=== PATIENT | male | born 1960 | race Caucasian/White ===

== ENCOUNTER 2020-02-20 00:22 | Observation (INO) | payer SELFPAY ==
[2020-02-20] MEDS ORDERED: SODIUM CHLORIDE 0.9% (FLUSH) 10 ML SYG IV PRN ×2 (00:32→08:37)
[2020-02-20] MEDS ORDERED: ONDANSETRON INJ 4 MG/2 ML VIAL IV ONE (00:32)
[2020-02-20] MEDS ORDERED: SODIUM CHLORIDE 0.9% 1000ML 1,000 ML IVS ONE (00:33)
--- NOTE | 2020-02-20 00:33 | ED.PDOC ---
History of Present Illness - General Time Seen by Provider: 02/20/20 00:32 Source: patient - History of Present Illness Initial Comments: 59-year-old male with no reported medical issues who is brought in by from home for chief complaint of dizziness and vomiting. Patient reports dizziness symptoms began yesterday evening while riding in the car. It again recurred this morning so pt stayed home from work and sx's went away after a short while. Patient reports he went to sleep this evening and woke up about 2 hours ago again with symptoms but more severe in nature and constant for the past 2 hours. He reports sensation of dizziness like the room is spinning. It is associated with severe nausea and 5 episodes of nonbloody nonbilious emesis as well as development of skin pallor and diaphoresis. Reports the dizziness is worsened by position changes and turning his head, seems to be slightly better when lying flat and closing his eyes. He has not taken any medication for relief. Denies any history of similar symptoms in the past. Denies any chest pain, shortness of breath, fevers, chills, cough, abdominal pain, diarrhea, urinary symptoms, leg swelling, ear pain or fullness. Patient denies any history of high blood pressure, diabetes, cardiac history, stroke. Reports he is otherwise healthy and takes no daily medications. He drinks occasionally but has not had any alcohol this evening. PCP is Dr. Kiel Mullins. Allergies/Adverse Reactions: Allergies NO KNOWN ALLERGY Allergy (Verified 02/20/20 00:56) Review of Systems - Review of Systems Review of Systems: 02/20/20 00:52 as per HPI All other Systems: Reviewed and Negative Family Medical History - Family History Mother Family History: Unknown Physical Exam - Physical Exam General Appearance: Alert, Anxious, Restless Eye Exam: bilateral normal Ears, Nose, Throat: normal ENT inspection, normal pharynx Neck: non-tender, full range of motion, supple, normal inspection Respiratory: chest non-tender, lungs clear, normal breath sounds, no respiratory distress, no accessory muscle use Cardiovascular/Chest: normal peripheral pulses, regular rate, rhythm, no edema, no gallop, no JVD, no murmur Peripheral Pulses: radial,right: 2+, radial,left: 2+ Gastrointestinal/Abdominal: normal bowel sounds, non tender, soft, no organomegaly, no pulsatile mass Back Exam: normal inspection, no CVA tenderness, no vertebral tenderness Extremity: normal range of motion, non-tender, normal inspection, no pedal edema, no calf tenderness, normal capillary refill Neurologic: body artist II-XII nml as tested, no motor/sensory deficits, alert, normal mood/affect, oriented x 3, abnormal cerebellar tests - BL leftward beating horizontal nystagmus noted Skin Exam: diaphoresis, pallor Progress - Progress Progress: 02/20/20 00:54 Acute dizziness and nausea -Most consistent with peripheral etiology such as acute benign paroxysmal positional vertigo vs vestibular neuritis/labyrinthitis, etc... Consider also stroke, middle ear infection, acoustic neuroma, ACS, dehydration, metabolic derangement, gastroenteritis, flu, strep, COVID-19, other -Patient with slightly elevated blood pressure upon arrival but vitals otherwise stable -Obtain blood work, cardiac work-up, CT imaging of the head -Place peripheral IV, 1 L normal saline bolus, Zofran 4 mg IV, reassess 02/20/20 01:45 -Pt now able to tolerate HiNTS exam - reassuring as pt noted to have horizontal leftward-beating nystagmus. Does not change directions with horizontal gaze in both directions. There does seem to be abnormal horizontal head impulse test (saccade/correction present), which is a reassuring finding. And there is no skew deviation on alternate eye cover test - all suggestive of nerve/peripheral issue and not brainstem issue. Question vestibular neuritis. -Pt does report some improving dizziness and nausea. -Will obtain CT head w/o and CTA head & neck 02/20/20 05:00 -Patient remains stable. -CT imaging of the head and neck reviewed. There is no acute processes or lesions noted. -Labs reviewed. Pertinent for positive strep test, random glucose 163, serum potassium 3.1. BUN 23, creatinine 0.9 likely mild dehydration from vomiting. Otherwise labs largely unremarkable -Patient reports dizziness and nausea symptoms much improved but not fully resolved. He was able to ambulate independently to the restroom. Given his persistent dizziness and nausea, I advised that we admit him for further observation for PRN medications and monitoring. My impression is that he most likely has a peripheral cause of his acute persistent dizziness. I strongly suspect vestibular neuritis. CVA appears unlikely but still remains within the differential. I discussed the patient with Radha Rodrigues who accepts to her service. The plan will be for continued IV medications as needed for dizziness as well as IV fluids. Plan for possible MRI of the brain while in the hospital. Discussed possible trial of IV steroids, will leave at the discretion of admitting provider. With the streptococcal pharyngitis, will treat with Bicillin 1,200,000 units IM in the ED. Eric Mathis MD Billing #[id number] 02/20/20 00:32 IV Care:Saline Lock per Protoc QSHIFT Sodium Chloride 0.9% (Flush) [Saline Flush Syringe] 10 ml IV PRN PRN 02/20/20 00:45 EKG STAT Laboratory Results - last 24 hr 02/20/20 02/20/20 02/20/20 01:00 01:00 01:00 WBC 8.9 RBC 5.00 Hgb 14.3 Hct 42.0 MCV 84.0 MCH 28.7 MCHC 34.2 RDW 13.1 Plt Count 251 MPV 8.5 Absolute Neuts (auto) 6.60 Absolute Lymphs (auto) 1.60 Absolute Monos (auto) 0.50 Absolute Eos (auto) 0.10 Absolute Basos (auto) 0.10 Neutrophils % 74.4 Lymphocytes % 18.2 L Monocytes % 6.1 Eosinophils % 0.6 L Basophils % 0.7 Sodium 140 Potassium 3.1 L Chloride 105 Carbon Dioxide 22 Anion Gap 16.1 BUN 23 H Creatinine 0.94 BUN/Creatinine Ratio 24.5 H Random Glucose 163 H Serum Osmolality 286.7 Calcium 9.1 Total Bilirubin 0.7 Direct Bilirubin 0.1 Indirect Bilirubin 0.6 AST 22 ALT 15 Alkaline Phosphatase 32 L Troponin I < 0.02 Serum Total Protein 6.9 Albumin 4.2 Amylase 52 Lipase 32 Urine Color Urine Appearance Urine pH Ur Specific [place] Urine Protein Urine Glucose (UA) Urine Ketones Urine Blood Urine Nitrite Urine Bilirubin Urine Urobilinogen Ur Leukocyte Esterase Urine RBC Urine WBC Ur Epithelial Cells Urine Bacteria Group A Strep Rapid 02/20/20 02/20/20 01:24 01:30 WBC RBC Hgb Hct MCV MCH MCHC RDW Plt Count MPV Absolute Neuts (auto) Absolute Lymphs (auto) Absolute Monos (auto) Absolute Eos (auto) Absolute Basos (auto) Neutrophils % Lymphocytes % Monocytes % Eosinophils % Basophils % Sodium Potassium Chloride Carbon Dioxide Anion Gap BUN Creatinine BUN/Creatinine Ratio Random Glucose Serum Osmolality Calcium Total Bilirubin Direct Bilirubin Indirect Bilirubin AST ALT Alkaline Phosphatase Troponin I Serum Total Protein Albumin Amylase Lipase Urine Color Yellow Urine Appearance Clear Urine pH 8.5 H Ur Specific [place] 1.025 Urine Protein Negative Urine Glucose (UA) Negative Urine Ketones 40 H Urine Blood Negative Urine Nitrite Negative Urine Bilirubin Negative Urine Urobilinogen 0.2 Ur Leukocyte Esterase Negative Urine RBC 0 Urine WBC 0 Ur Epithelial Cells 0 Urine Bacteria 0 Group A Strep Rapid Positive H - EKG/XRAY/CT EKG: Sinus - Normal sinus rhythm, heart rate 75, no ST elevations noted, Q waves present in inferior and lateral leads indicative of possible prior IA, axis normal, intervals normal, no prior EKG for comparison Departure - Departure Clinical Impression: Dizziness, nonspecific, Strep pharyngitis Vestibular neuritis Qualifiers: Laterality: unspecified laterality Qualified Code(s): H81.20 - Vestibular neuronitis, unspecified ear Time of Disposition: 05:00 Disposition: Admit Patient Condition: Fair Decision To Admit - Decistion To Admit Decision to Admit Reason: Admit from ER Decision to Admit Date: 02/20/20 Decision to Admit Time: 05:00
[2020-02-20] MEDS ORDERED: SODIUM CHLORIDE 0.9% 1000ML 1,000 ML ONE (00:42)
[2020-02-20] MEDS ORDERED: ONDANSETRON INJ 4 MG/2 ML VIAL ONE (00:42)
[2020-02-20] MEDS ORDERED: PROMETHAZINE HCL INJ 25 MG/ML VIAL ONE (01:15)
[2020-02-20] MEDS ORDERED: SODIUM CHL 0.9% 50ML MIN-BAG+ 50 ML IVPB ONE ×2 (01:16→10:30)
[2020-02-20] MEDS ORDERED: PROMETHAZINE HCL INJ 12.5 MG in SODIUM CHLORIDE 0.9% 50ML 50 ML IVPB ONE ×2 (01:40→03:49)
--- NOTE | 2020-02-20 03:03 | CT ---
EXAM DESCRIPTION: Head 02/20/2020 3:00 AM CDT CLINICAL HISTORY: 59 years, Male, dizziness, n/v COMPARISON: None. FINDINGS: Multiple transaxial tomograms of the brain were obtained from the base of the skull to the vertex without contrast. 2-D multiplanar reformats and the coronal and sagittal plane were performed and reviewed. An individualized dose optimization technique, Automated Exposure Control, was utilized for the performed procedure. Brain parenchyma as well as the ag and white matter differentiation demonstrate to be unremarkable. There is no midline shift and/or mass effect. There is no evidence for acute hemorrhage and/or focal areas of hypodensities that will suggest acute infarction. Lateral ventricles and cisterns displace normal appearance. No intra or extra axial fluid collections were seen. The calvarium is intact with no evidence for fracture. The visualized portions of the paranasal sinuses and orbits demonstrate to be clear. IMPRESSION: NO ACUTE INTRACRANIAL HEMORRHAGE. GROSSLY UNREMARKABLE CT SCAN OF THE HEAD WITHOUT CONTRAST. Electronically signed by: Dallin Brambila MD 02/20/2020 3:01 AM CDT
--- NOTE | 2020-02-20 03:14 | CT ---
EXAM DESCRIPTION: CTA Head (accession [id number]), CTA Neck (accession [id number]) 02/20/2020 3:02 AM CDT CLINICAL HISTORY: 59 years, Male, persistent severe dizziness COMPARISON: None. PROCEDURE: Multiple transaxial tomograms from the aortic arch through the brain were performed after administration of large bolus of IV contrast for complete opacification of the carotid arteries and intracranial vessels. Subsequent 2-D and 3-D multiplanar reformats, maximum intensity projection images were generated and reviewed An individualized dose optimization technique, Automated Exposure Control, was utilized for the performed procedure. FINDINGS: Ascending aorta: There is a normal branching pattern of the great vessels off the arch. There are codominant vertebral arteries which demonstrate normal opacification. No great vessel origin stenosis is identified. There is normal origin of the right and left vertebral artery. There is slightly larger caliber of the left vertebral artery in relation to the right. The segments of the lower segments of the right and left vertebral arteries demonstrate to be unremarkable. Right carotid artery: Normal opacification is demonstrated within the right common carotid artery and at the carotid bifurcation. There is normal opacification of the right internal carotid artery with no evidence for significant focal stenosis, occlusion and/or dissection. Left carotid artery: Normal opacification is demonstrated within the left common carotid artery and the carotid bifurcation. There is normal opacification of the left internal carotid artery with no evidence for significant focal stenosis, occlusion and/or dissection. Intracranial circulation: Intracranial portions of the internal carotid arteries the cavernous sinus portions demonstrates no focal areas of significant stenosis. Noted is the presence of a tortuous siphon. There is normal opacification within the anterior circulation without evidence of intracranial aneurysm. The middle cerebral arteries, anterior cerebral arteries and its branches demonstrate normal opacification with no evidence for significant stenosis aneurysm and/or occlusion. There is normal venous drainage. Vertebrobasilar system: The posterior circulation demonstrate codominant bilateral vertebral arteries with no evidence for significant stenosis and/or evidence for significant dissection. The vertebrobasilar system and DIRECT CARE SPECIALIST demonstrate to be normal with no evidence for aneurysm and/or occlusion. Grossly the brain parenchyma demonstrate normal ag-white matter differentiation with no evidence for mass effect and/or midline shift. The skull base and intracranial structures demonstrate to be within normal limits. Lung apex: No gross abnormalities are noted within the apices. IMPRESSION: UNREMARKABLE CTA INTRACRANIAL VESSELS WITH NO EVIDENCE FOR SIGNIFICANT ANEURYSM, STENOSIS AND/OR OCCLUSION. GROSSLY UNREMARKABLE COMMON AND INTERNAL CAROTID ARTERIES NO EVIDENCE FOR STENOSIS AND/OR OCCLUSION. NORMAL CODOMINANT BILATERAL VERTEBRAL ARTERIES WITH SLIGHT DECREASED RIGHT VERTEBRAL ARTERY. NO EVIDENCE FOR STENOSIS AND/OR DISSECTION. GROSSLY UNREMARKABLE BRAIN WITH CONTRAST. Electronically signed by: Dallin Brambila MD 02/20/2020 3:12 AM CDT
[2020-02-20] MEDS ORDERED: PENICILLIN BENZATHINE 1.2 MU 1.2 MU/2 ML SYG IM ONE (04:29)
--- NOTE | 2020-02-20 05:39 | HP ---
SUPERVISING PHYSICIAN: Asif Trent M.D. CHIEF COMPLAINT: Dizziness with nausea and vomiting. HISTORY OF PRESENT ILLNESS: This is a 59 year-old male patient who has no known medical history. He came to the Emergency Room due to dizziness with nausea and vomiting. His symptoms had actually began the previous day, but prior to coming to the Emergency Room he was asleep and he woke up with some nausea, vomiting and extreme dizziness. It lasted continuously for about 2 hours until he came to the Emergency Room and received some Ativan and antiemetics. In the Emergency Room, his initial vital signs showed temperature 96.6, heart rate 75, blood pressure 151/79, respiratory rate 24, O2 saturation 100% on room air. There were no readings of high blood pressure in the Emergency Room. He had left forward nystagmus as well as an abnormal horizontal head impulse test. There were no other neurological symptoms with the exception of his dizziness with the room spinning. He was also diagnosed with Streptococcus pharyngitis and was given an injection of Bicillin LA. He was given Promethazine, Ativan and Zofran. He was also given a small amount of fluids in the Emergency Room. His lab showed a CBC that was unremarkable. Electrolytes were basically within normal limits with the exception of his potassium was low at 3.1. Troponin was less than 0.02. Urinalysis was unremarkable. COVID-19 swab was negative. Influenza A and B per PCR were negative. He had a head CT that showed no acute intracranial hemorrhage with grossly unremarkable CT scan of the head without contrast. Head CTA without contrast showed unremarkable CTA and intracranial vessels with no evidence for significant aneurysm, stenosis and/or occlusion. Grossly unremarkable common and internal carotid arteries. No evidence for stenosis and/or occlusion. Normal co-dominant bilateral vertebral arteries with slight decreased right vertebral artery. No evidence for stenosis or dissection. Grossly unremarkable brain with contrast. I was called for hospital admission. PAST MEDICAL HISTORY: 1. Prior history of syncope. The patient was extremely nauseated and vomiting. PAST SURGICAL HISTORY: None. OUTPATIENT MEDICATIONS: None. ALLERGIES: NO KNOWN DRUG ALLERGIES. SOCIAL HISTORY: He is . He lives in [place]. He denies tobacco, ETOH or illicit drug use. REVIEW OF SYSTEMS: All negative except as per History of Present Illness. PHYSICAL EXAMINATION: VITAL SIGNS: Temperature 97.6, heart rate 64, blood pressure 133/70, respiratory rate 18, O2 saturation 98% on room air. GENERAL: This is a 59 year-old male patient who is lying in his hospital bed. He is in no acute distress. HEENT: Normocephalic, atraumatic. Pupils are equal and reactive. Oropharynx is clear. There is no nystagmus noted on exam. NECK: Supple without mass. RESPIRATORY: Essentially clear to auscultation bilaterally. CHEST: There is equal rise and fall of the chest with inspiration and expiration. CARDIOVASCULAR: Regular rate and rhythm. GASTROINTESTINAL: Abdomen is soft, nondistended, nontender. Bowel sounds are positive. EXTREMITIES: No cyanosis, clubbing or edema. NEUROLOGIC: Awake, alert and oriented times three. I did not do a horizontal head impulse test because the patient was having no symptoms of dizziness and no symptoms of nausea or vomiting. LABORATORY: Labs and films are as per the History of Present Illness. ASSESSMENT: 1. Dizziness with nausea and vomiting that lasted more than 2 hours. 2. Benign positional vertigo versus cerebrovascular accident versus a vestibular neuritis. 3. Streptococcus A pharyngitis. PLAN: The patient has been placed in observation. At this time he is having no complaints of dizziness, nausea or vomiting, although I still have some concerns with the actual diagnosis. I had ordered some Ativan and antiemetics but he has not required those since admission. Will monitor him closely. Will get an MRI on Saturday morning. He will also have a carotid echo ordered. His blood pressure will also be closely monitored. He has been instructed to call for any problems or issues with dizziness. Will have Lovenox for DVT prophylaxis and a PPI for ulcer prophylaxis. #[id number] [facility]
[2020-02-20] MEDS ORDERED: ONDANSETRON INJ 4 MG/2 ML VIAL IV PRN (08:37)
[2020-02-20] MEDS ORDERED: PROMETHAZINE HCL INJ 25 MG in SODIUM CHLORIDE 0.9% 50ML 50 ML IVPB PRN (08:56)
[2020-02-20] MEDS ORDERED: IV SET AND CAP CHANGE INJ INJ SCH (09:00)
[2020-02-20] MEDS ORDERED: cefTRIAXone SODIUM 1 GM VIAL ONE (10:29)
[2020-02-20] MEDS: POTASSIUM CHLORIDE 20 MEQ TAB PO SCH ×2 (10:35→13:50)
[2020-02-20] MEDS: cefTRIAXone SODIUM 1 GM in SODIUM CHL 0.9% 50ML MIN-BAG+ 50 ML IVPB SCH (10:35)
[2020-02-20] MEDS: BIFIDOBACTERIUM INFANTIS 4 MG CAP PO SCH ×2 (10:36→20:13)
[2020-02-20] MEDS: ENOXAPARIN SODIUM 40 MG/0.4 ML SYG SUBCU SCH (10:36)
[2020-02-20] MEDS ORDERED: methylPREDNISolone SODIUM SUC 40 MG/ML VIAL ONE (15:59)
[2020-02-20] MEDS: methylPREDNISolone SODIUM SUC 125 MG/2 ML VIAL IV SCH (16:10)
[2020-02-20] MEDS: valACYclovir 500 MG TAB PO SCH ×2 (16:11→20:13)
[2020-02-21] MEDS: PANTOPRAZOLE SODIUM IV 40 MG VIAL IV SCH (06:29)
[2020-02-21] MEDS ORDERED: valACYclovir 500 MG TAB ONE ×3 (08:27→18:58)
[2020-02-21] MEDS ORDERED: BIFIDOBACTERIUM INFANTIS 4 MG CAP ONE ×2 (08:27→18:58)
[2020-02-21] MEDS ORDERED: methylPREDNISolone SODIUM SUC 125 MG/2 ML VIAL ONE (08:27)
[2020-02-21] MEDS ORDERED: ENOXAPARIN SODIUM 40 MG/0.4 ML SYG SUBCU ONE (08:28)
[2020-02-21] MEDS ORDERED: SODIUM CHL 0.9% 50ML MIN-BAG+ 50 ML IVPB ONE (08:28)
[2020-02-21] MEDS ORDERED: cefTRIAXone SODIUM 1 GM VIAL ONE (08:33)
[2020-02-21] MEDS: BIFIDOBACTERIUM INFANTIS 4 MG CAP PO SCH ×2 (08:41→20:42)
[2020-02-21] MEDS: valACYclovir 500 MG TAB PO SCH ×3 (08:41→20:42)
[2020-02-21] MEDS: methylPREDNISolone SODIUM SUC 125 MG/2 ML VIAL IV SCH (08:42)
[2020-02-21] MEDS: ENOXAPARIN SODIUM 40 MG/0.4 ML SYG SUBCU SCH (08:42)
[2020-02-21] MEDS: cefTRIAXone SODIUM 1 GM in SODIUM CHL 0.9% 50ML MIN-BAG+ 50 ML IVPB SCH (08:43)
[2020-02-21] MEDS ORDERED: methylPREDNISolone SODIUM SUC 125 MG/2 ML VIAL IV SCH (09:00)
--- NOTE | 2020-02-21 19:00 | PN ---
SUPERVISING PHYSICIAN: Asif Trent M.D. DATE: 02/21/20 SUBJECTIVE: The patient is sitting up in a chair in his bedroom. His is at the bedside. He has had no further episodes of dizziness. He denies any chest pain, nausea or vomiting, weakness or syncopal episodes. OBJECTIVE: VITAL SIGNS: Temperature 97.5, heart rate 57, blood pressure 120/70, respiratory rate 15, O2 saturation 97% on room air. RESPIRATORY: Essentially clear to auscultation bilaterally. CARDIAC: Regular rate and rhythm. NEUROLOGIC: He is awake, alert and oriented times three. LABORATORY: CBC is unremarkable. CMP is unremarkable and his total cholesterol is 272 with an LDL of 185 and HDL of 66. All other labs and films have been reviewed via the EMR. ASSESSMENT: 1. Dizziness with nausea and vomiting that lasted more than 2 hours. 2. Benign positional vertigo versus cerebrovascular accident versus a vestibular neuritis. 3. Streptococcus A pharyngitis. PLAN: We will continue present supportive care. He will have an MRI of the brain, an echocardiogram and a carotid ultrasound in the morning. He has been instructed to call Dr. Mullins's office after discharge for a followup. If he has no further complaints of dizziness, he will be discharged after that testing has taken place. There will be no labs for in the morning as they are fairly stable. Will continue to monitor closely and follow as needed. #[id number] [facility]
[2020-02-22] MEDS ORDERED: PANTOPRAZOLE SODIUM IV 40 MG VIAL ONE (04:58)
[2020-02-22] MEDS: PANTOPRAZOLE SODIUM IV 40 MG VIAL IV SCH (06:00)
[2020-02-22] MEDS ORDERED: cefTRIAXone SODIUM 1 GM VIAL ONE (06:58)
[2020-02-22] MEDS ORDERED: valACYclovir 500 MG TAB ONE (06:58)
[2020-02-22] MEDS ORDERED: ENOXAPARIN SODIUM 40 MG/0.4 ML SYG SUBCU ONE (06:58)
[2020-02-22] MEDS ORDERED: BIFIDOBACTERIUM INFANTIS 4 MG CAP ONE (06:58)
[2020-02-22] MEDS ORDERED: methylPREDNISolone SODIUM SUC 125 MG/2 ML VIAL ONE (06:58)
[2020-02-22] MEDS ORDERED: SODIUM CHL 0.9% 50ML MIN-BAG+ 50 ML IVPB ONE (06:59)
[2020-02-22] MEDS: valACYclovir 500 MG TAB PO SCH (08:12)
[2020-02-22] MEDS: ENOXAPARIN SODIUM 40 MG/0.4 ML SYG SUBCU SCH (08:12)
[2020-02-22] MEDS: BIFIDOBACTERIUM INFANTIS 4 MG CAP PO SCH (08:12)
[2020-02-22] MEDS: methylPREDNISolone SODIUM SUC 125 MG/2 ML VIAL IV SCH (08:13)
[2020-02-22] MEDS: cefTRIAXone SODIUM 1 GM in SODIUM CHL 0.9% 50ML MIN-BAG+ 50 ML IVPB SCH (08:15)
--- NOTE | 2020-02-22 09:12 | MRI ---
EXAM DESCRIPTION: Brain w/wo Contrast: Magnetic Resonance Imaging. CLINICAL HISTORY: 59 years Male dizziness; vestibular neuritis vs vertigo vs CVA COMPARISON: CTA of the head and neck and ultrasound carotid duplex evaluation in the past week TECHNIQUE: Multiplanar, high-field MRI, multiple conventional sequences, without and with gadolinium IV 1 mL per 5 mg body weight Dotarem contrast. No adverse reactions. Multiple axial diffusion sequences. FINDINGS: Normal FLAIR and T2-weighted signal in the periventricular white matter and ag-white matter junctions of the cerebral hemispheres. . Normal contrast enhancement. Normal signal in the bilateral basal ganglia. Normal contrast enhancement. Normal signal in the brainstem and cerebellar hemispheres. Normal contrast enhancement. Concordance of the diffusion and non-diffusion sequences with no evidence of acute or subacute infarction. Cortical sulci, ventricles, and other CSF spaces, and the subdural spaces are normally configured for patients age. No effacement or displacement. No midline shift. No extra-axial hemorrhage. Normal contrast enhancement. Normal flow signal void in the major vessels of the alturas [place], and the venous sinuses. IACs are symmetric bilaterally. Normal signal in the bilateral mastoid air cells. No mass effect in the bilateral Cerebellopontine angles. Normal contrast enhancement. Pituitary gland occupies most of the sella. Normal contrast enhancement. Base of the cerebellar tonsils is at the level of the foramen magnum. Minimal mucoperiosteal thickening in the paranasal sinuses. The bony calvarium is intact. IMPRESSION: 1. Normal noncontrast and post contrast MRI scan of the brain. No mass effect, no cerebral edema, no midline shift. No intra-axial extra-axial hemorrhage or fluid collection. 2. Normal noncontrast MRI diffusion study of the brain with no evidence of significant ischemia, or acute or subacute infarction. 3. Chronic paranasal sinusitis also seen on recent CTA of the head. Electronically signed by: Héctor Olguin MD 02/22/2020 9:10 AM CDT
[2020-02-22 10:47] VITALS: BP 135/79; TEMP 98.2; O2SAT 97
--- NOTE | 2020-02-23 07:55 | DS ---
SUPERVISING PHYSICIAN: Ethan Delcid MD ADMISSION DIAGNOSIS: 1. Dizziness with nausea and vomiting that lasted more than 2 hours. 2. Benign positional vertigo versus cerebrovascular accident versus a vestibular neuritis. 3. Streptococcal A pharyngitis. DISCHARGE DIAGNOSIS: 1. Dizziness with nausea and vomiting that lasted more than 2 hours. 2. Benign positional vertigo versus cerebrovascular accident versus a vestibular neuritis. 3. Streptococcal A pharyngitis. HISTORY OF PRESENT ILLNESS: This is a 59-year-old male patient with no significant past medical history who came to the Emergency Room due to dizziness with nausea and vomiting. His symptoms had started the day prior and he came to the Emergency Room. Prior to him coming to the ER, he woke up with nausea, vomiting and dizziness. It lasted for about 2 hours before he came. In the ER, he had stable vital signs. He had left forward nystagmus as well as abnormal horizontal head impulse test. There were no neurological symptoms except for the dizziness with room spinning. He was also diagnosed with Streptococcal pharyngitis and given Bicillin LA injection. He was given promethazine, Ativan and Zofran as well as some IV fluids in the ER. CT scan of the head showed no acute process. CTA of the head did not show anything acute either. CTA of the neck showed no significant stenosis. He was admitted for observation. HOSPITAL COURSE: He had no further nausea, vomiting or dizziness. He had an echocardiogram and MRI today which the MRI that was done was normal. There was some sinusitis seen. Echocardiogram showed normal left ventricular size and systolic function with an ejection fraction of 55-60%, mild concentric left ventricular hypertrophy, no significant valvular dysfunction, trace mitral valve regurgitation and trace tricuspid valve regurgitation. Due to lack of recurrent symptoms and stability and negative workup, the patient was discharged in stable condition today. His diet is as tolerated as well as activity as tolerated. He can followup with his primary care physician, Alin Coburn, in 1 to 2 weeks. He was given a prescription for Augmentin for his sinusitis to be completed as well. #[id number] [facility]
== END 2020-02-22 11:07 | disposition home or self-care (01) ==
LOC: ER 00:22 → MS 05:38
PROVIDERS: ADMIT Nurse Practitioner Acute Care; ATTEND Nurse Practitioner
DX: R42 Dizziness and giddiness (principal); R11.2 Nausea with vomiting, unspecified; J02.0 Streptococcal pharyngitis; R03.0 Elevated blood-pressure reading, without diagnosis of hypertension; I08.1 Rheumatic disorders of both mitral and tricuspid valves; Z20.828 Contact with and (suspected) exposure to other viral communicable diseases
CPT/HCPCS: 96366 ×2; 96367; 96365; 96375 ×2; 96376 ×2; 96372 ×3; J0696 ×3; J2060; J1030; J2930 ×2; J2405; J0561; J2550 ×2; J7030; A4216 ×2; J1650 ×3; J7050 ×4; 80048; 80053; 87880; 80061; 36415 ×2; 82150; 81001; 80076; 85025 ×2; 83690; 83735 ×2; 84484; 70450; 70496; 70498; 94760 ×4; 99285; 93306; 70553; 93005; G0378; 87502; 87635